=== PATIENT | female | born 1985 ===

== ENCOUNTER 2017-12-17 10:53 | Emergency (ER) | payer OTHER ==
[2017-12-17 11:05] VITALS: BP 144/94
--- NOTE | 2017-12-17 11:32 | UC ---
Respiratory Complaint HPI - HPI Summary HPI Summary: A 32 y/o F presents to [facility] [place] with ongoing sore throat onset 6 days ago. Associated sx: fatigue, fever, ear pain. Denies rhinorrhea, cough, wheezing. She has two toddlers at home but states they are not sick, and she's had no recent exposure to anyone sick. She's used IBP, cough drops to no relief. PMHx: mono as a teenager. - History of Current Complaint Chief Complaint: UCRespiratory Stated Complaint: SORE THROAT Time Seen by Provider: 12/17/17 11:29 Hx Obtained From: Patient Hx Last Menstrual Period: august 2012 Onset/Duration: Lasting Days, Still Present Timing: Constant Severity Initially: Moderate Severity Currently: Moderate Pain Intensity: 7 Pain Scale Used: 0-10 Numeric Associated Signs And Symptoms: Positive: Fever - Allergies/Home Medications Allergies/Adverse Reactions: Allergies Allergy/AdvReac Type Severity Reaction Status Date / Time No Known Allergies Allergy Verified 12/17/17 11:05 PMH/Surg Hx/FS Hx/Imm Hx Previously Healthy: No Cardiovascular History: Hypertension Other Respiratory History: neg: asthma, COPD - Surgical History Surgical History: None - Family History Known Family History: Positive: Hypertension - father, Diabetes Negative: Cardiac Disease - Social History Occupation: Employed Full-time Lives: With Family Alcohol Use: Occasionally Substance Use Type: None Smoking Status (MU): Never Smoked Tobacco Review of Systems Constitutional: Fever, Fatigue ENT: Sore Throat, Ear Ache, Other - neg: rhinorrhea Respiratory: Other - neg: cough, wheezing All Other Systems Reviewed And Are Negative: Yes Physical Exam - Summary Physical Exam Summary: General: mildly ill-appearing, no pain distress Skin: warm, color reflects adequate perfusion, dry Head: normal Eyes: EOMI, CHRISTOPHER ENT: TMs are normal; posterior phraynx: tonsils are 2+ and erythematous; uvula is midline, Neck: supple, positive anterior cervical adenopathy Respiratory: CTA, breath sounds present Cardiovascular: RRR Abdomen: soft, nontender Bowel: present Musculoskeletal: normal, strength/ROM intact Neurological: sensory/motor intact, A&O x3 Psychological: affect/mood appropriate Triage Information Reviewed: Yes Vital Signs: Initial Vital Signs Temp 97.7 F 12/17/17 11:03 Pulse 82 12/17/17 11:03 Resp 18 12/17/17 11:03 BP 144/94 08/29/18 11:03 Pulse Ox 99 12/17/17 11:03 Vital Signs Reviewed: Yes UC Diagnostic Evaluation - Laboratory O2 Sat by Pulse Oximetry: 99 Respiratory Course/Dx - Course Course Of Treatment: BP noted and advised to follow up with PCP. Medications reviewed. Allergies noted. DISCUSSED VIRAL VERSES BACTERIAL INFECTION AND THE ROLE OF ANTIBIOTICS. THE PATIENT WISHES TO BE ON ANTIBIOTICS AT THIS TIME. NO PERITONSILLAR ABSCESS ON EXAM AT THIS TIME. - Differential Dx/Diagnosis Provider Diagnoses: TONSILLITIS. PHARYNGITIS. HTN Discharge - Sign-Out/Discharge Documenting (check all that apply): Patient Departure - DC All imaging exams completed and their final reports reviewed: No Studies - Discharge Plan Condition: Stable Disposition: HOME Prescriptions: Amoxicillin/Clavulanate TAB* [Augmentin TAB 875*] 875 mg PO BID #20 tab Patient Education Materials: Pharyngitis (ED), Tonsillitis (ED) Referrals: [facility] [Outside] Additional Instructions: FOLLOW UP WITH YOUR DOCTOR IF NOT COMPLETELY IMPROVED. GET RECHECKED FOR ANY WORSENING OF YOUR CONDITION OR QUESTIONS OR CONCERNS. Your blood pressure was elevated during todays visit; please follow up with your primary care provider within a week for further evaluation. - Billing Disposition and Condition Condition: STABLE Disposition: Home - Attestation Statements Document Initiated by Mary: Yes Documenting Scribe: Angel Oro Provider For Whom Mary is Documenting (Include Credential): Hernandez Mart MD Scribe Attestation: Angel Carpio scribed for Hernandez Mart MD on 12/17/17 at 1204. Scribe Documentation Reviewed: Yes Provider Attestation: The documentation as recorded by the Angel villalobos accurately reflects the service I personally performed and the decisions made by me, Hernandez Mart MD
== END 2017-12-17 11:47 | disposition home or self-care (01) ==
LOC: UCEAST 10:53
DX: J03.90 Acute tonsillitis, unspecified (principal); J02.9 Acute pharyngitis, unspecified; I10 Essential (primary) hypertension
CPT/HCPCS: 87651; 99202; G0463